=== PATIENT | female | born 1945 | race Caucasian/White ===

== ENCOUNTER 2016-12-28 21:24 | Emergency (ER) | payer MEDICARE, BC ==
--- NOTE | ~2016-12-28 | ER ---
PATIENT'S NAME: CAROLYN NEVILLE [facility] AGE: 71 Y [address] ROOM: [place], [place] [address] LOCATION: ED ADMIT DATE: 12/28/2016 ER/Outpatient Report DISCHARGE DATE: 12/28/2016 FAMILY PHYSICIAN: Physician, Unknown ATTENDING PHYSICIAN: Wendy Torres TIME OF PATIENT ARRIVAL: 4 hours. TIME OF PATIENT EVALUATION: 2127 hours. CHIEF COMPLAINT: Cough, shortness of breath. HISTORY OF PRESENT ILLNESS: This is a 71-year-old female who presents to the ER with her . States approximately 15 to 20 minutes prior to arrival, she developed acute shortness of breath. She states that they are traveling through from [place] to [place]. She states that she has been having troubles with her COPD lately, was seen in [place], and they started her on prednisone taper and albuterol solution. She took her first dose of prednisone around noon today and then tried to take her albuterol prior to coming, but it did not really help her. She states she has had nothing else new. No new foods. They were in the hotel room when this started. She states her cough is dry. She denies any chest pain. No fever or chills. No other problems at this time. She states that her throat feels like it is closing. The patient states that she has never had anything like this before. ALLERGIES: PENICILLIN. MEDICATIONS: Please see medication list, nurse's notes. PAST MEDICAL HISTORY: COPD, macular degeneration, and acid reflux. SOCIAL HISTORY: Denies smoking, drug, or alcohol use. REVIEW OF SYSTEMS: A 10-point review of system was completed and was negative with the exception of those discussed in the HPI. PATIENT'S NAME: CAROLYN NEVILLE [facility] AGE: 71 Y [address] ROOM: [place], [place] [address] LOCATION: ED ADMIT DATE: 12/28/2016 ER/Outpatient Report DISCHARGE DATE: 12/28/2016 FAMILY PHYSICIAN: Physician, Unknown ATTENDING PHYSICIAN: Wendy Torres PHYSICAL EXAMINATION: VITAL SIGNS: Weight 56.6 kg taken, blood pressure is 147/112, pulse 96, respirations 28, temperature 97.7 degrees tympanically, and saturations 93% on room air. [place] Coma Score is 15. GENERAL: Alert, very anxious appearing, 71-year-old in mild to moderate distress with her respiratory status. HEENT. Head: Normocephalic. Eyes: Pupils are equal and reactive to light. Does display moist mucous membranes. Throat: No exudates or erythema. I do not appreciate any angioedema. LUNGS: Clear to auscultation bilaterally. She is tachypneic. She has no stridor noted. HEART: Regular rate and rhythm. EXTREMITIES: No clubbing or cyanosis. Full range of motion of all limbs. LABORATORY AND X-RAY DATA: None were done. IMPRESSION: Allergic reaction. ASSESSMENT AND PLAN: We did monitor the patient here for quite some time. We established IV upon the patient's arrival and did give her 125 mg of Solu-Medrol and Benadryl 25 mg IV. Vital signs remained stable her entire stay. She also was given DuoNeb breathing treatment upon her arrival as well. She states that she is feeling much better. She is no longer having any respiratory difficulty at all. We will dismiss her to home. She may use her albuterol nebulizer every 4 hours if she needs to. She may repeat Benadryl every 6 hours and continue her steroid taper. The patient and the patient's understand and agree with care. BLANCO ALEX PA-C FOR MD IMER YUN/krishna /[id number] d: t: 01/01/17 1901, OUTPATIENT REPORT
== END 2016-12-28 22:53 | disposition disaster alternative care site (69) ==
LOC: GMED 21:24
DX: T78.40XA Allergy, unspecified, initial encounter (principal); K21.9 Gastro-esophageal reflux disease without esophagitis; J44.9 Chronic obstructive pulmonary disease, unspecified; Z88.0 Allergy status to penicillin
CPT/HCPCS: J1200; J2930